=== PATIENT | female | born 1960 | race African-American/Black ===

== ENCOUNTER → 2017-02-20 | Outpatient (CLI) | payer OTHER ==
--- NOTE | 2017-02-20 16:19 | US ---
History: Dyspareunia Study: Transabdominal ultrasound of the pelvis Findings: The uterus is surgically absent. There is no free fluid. There is no free fluid or adnexa l mass. The ovaries are small without mass. Impression: Negative status post hysterectomy Reported By:
--- NOTE | 2017-02-22 12:14 | MG ---
HISTORY: SCREENING Comparison: April 12, 2015 and May 01, 2012 FINDINGS: Bilateral CC and MLO projections of the right and left breast were obtained. Scattered fibroglandul ar tissue is seen to be present without significant interval change. No suspicious architectural di stortion, mass or clustered microcalcifications can be observed to suggest malignancy. No skin thic kening or nipple retraction is appreciated. No pathological lymphadenopathy can be identified. Abdi ign-appearing calcifications are noted within the right and left breast. IMPRESSION: NO RADIOGRAPHIC EVIDENCE OF MALIGNANCY. ACR CATEGORY 2 - benign findings. FOLLOW-UP EXAM 1 YEAR. Diagnostic CAD was utilized and reviewed. * 0 (ZERO) - ASSESSMENT INCOMPLETE; ADDITIONAL IMAGING IS NEEDED. * 1/1 (ONE) - NEGATIVE. * 2/II (TWO) - BENIGN FINDINGS. * 3/III (THREE) - PROBABLY BENIGN FINDING; SHORT INTERVAL FOLLOW-UP SUGGESTED. * 4/IV (FOUR) - SUSPICIOUS ABNORMALITY; BIOPSY SHOULD BE CONSIDERED. * 5/V (FIVE) - HIGHLY SUSPICIOUS OF MALIGNANCY; BIOPSY SHOULD BE PERFORMED. A NEGATIVE X-RAY REPORT SHOULD NOT DELAY BIOPSY IF A DOMINANT OR CLINICALLY SUSPICIOUS MASS IS PRESENT; 4 TO 8 PERCENT OF CANCERS ARE NOT IDENTIFIED BY X-RAY. A NEG ATIVE REPORT MAY REINFORCE THE CLINICAL IMPRESSION. ADENOSIS AND DENSE BREASTS MAY OBSCURE AN UNDER LYING NEOPLASM. Reported By:
== END ==
LOC: RAD 10:51
PROVIDERS: ATTEND Nurse Practitioner Family
DX: Z12.31 Encounter for screening mammogram for malignant neoplasm of breast (principal); N94.19 Other specified dyspareunia
CPT/HCPCS: 76856; 77067

== ENCOUNTER → 2017-08-29 | Outpatient (CLI) | payer OTHER ==
--- NOTE | 2017-08-29 16:46 | RAD ---
Examination: Right shoulder, three views History: Chronic pain no trauma Findings: No fracture or dislocation. Degenerative narrowing of acromioclavicular and glenohumeral thelma ints. Small punctate calcifications are noted adjacent to the surface of the greater tuberosity. Impression: Osteoarthritis. Small suspect calcifications described may reflect calcific peritendiniti s. Reported By:
--- NOTE | 2017-08-30 08:45 | RAD ---
HISTORY: Chronic left shoulder pain Study: Left shoulder external, Y-view, transaxillary view Comparison: 08/29/2017 Findings: The clavicle, AC joint, scapula, glenohumeral joint, and proximal humerus are intact. There is calcif ication in the area of the biceps tendon which can be seen in calcific tendinitis and calcific bursit is in the appropriate clinical setting. IMPRESSION: Peritendinous calcification as described above which can be seen in calcific tendinitis and calcific bursitis in the appropriate clinical setting Reported By:
== END ==
LOC: RAD 15:18
PROVIDERS: ATTEND Specialist
DX: M25.511 Pain in right shoulder (principal); M25.512 Pain in left shoulder; R93.7 Abnormal findings on diagnostic imaging of other parts of musculoskeletal system
CPT/HCPCS: 73030